=== PATIENT | male | born 1975 | race American Indian/Alaskan Native ===

== ENCOUNTER 2021-01-22 15:27 | Emergency (ER) | payer SELFPAY ==
[2021-01-22] MEDS ORDERED: NALOXONE 2 MG/2 ML INJ IV ONE (20:00)
--- NOTE | 2021-01-22 20:01 | Emergency Department Report ---
History of Present Illness - General Stated Complaint: AMS Time Seen by Provider: 01/22/21 19:56 Source: EMS - History of Present Illness Initial Comments: Patient is 45 years old male brought to the emergency room via EMS for ketty luation of possible drug overdose EMS stated they found patient unresponsive with pinpoint pupils. Patient received Narcan 2 mg and patient immediately start working up. Upon arrival to the ER patient still obtunded however he responded to questions appropriately. He still denying using drugs. Complaint: accidental overdose Intent: unwilling to say Context: Accidental Overdose: wanted to get high Treatments Prior to Arrival: narcan ED Review of Systems ROS: Stated complaint: AMS Other details as noted in HPI Comment: All other systems reviewed and negative Constitutional: denies: chills, fever Respiratory: denies: cough, shortness of breath, SOB with exertion Cardiovascular: denies: chest pain Gastrointestinal: denies: abdominal pain, nausea, vomiting Musculoskeletal: denies: back pain Neurological: denies: headache, weakness Psychiatric: denies: auditory hallucinations, homicidal thoughts, suicidal thoughts ED Physical Exam - General General appearance: in no apparent distress, obtunded - Head Head exam: Present: atraumatic, normocephalic, normal inspection - Eye Eye exam: Present: normal appearance, PERRL Pupils: Present: miosis - ENT ENT exam: Present: normal exam, normal orophraynx, mucous membranes moist - Neck Neck exam: Present: normal inspection, full ROM. Absent: tenderness, m eningismus - Respiratory Respiratory exam: Present: normal lung sounds bilaterally - Cardiovascular Cardiovascular Exam: Present: regular rate, normal rhythm, normal heart sounds - GI/Abdominal GI/Abdominal exam: Present: soft, normal bowel sounds. Absent: distended, tenderness, guarding, rebound, rigid, organomegaly, mass, bruit, pulsatile mass, hernia - Extremities Exam Extremities exam: Present: normal inspection, full ROM, normal capillary refill. Absent: tenderness, pedal edema, joint swelling, calf tenderness - Back Exam Back exam: Present: normal inspection, full ROM. Absent: CVA tenderness (R), CVA tenderness (L) - Neurological Exam Neurological exam: Present: alert, oriented X3, CN II-XII intact - Psychiatric Psychiatric exam: Present: normal mood - Skin Skin exam: Present: warm, intact, normal color ED Course Vital Signs 01/22/21 20:21 Temperature 98.9 F Pulse Rate 89 Respiratory 14 Rate Blood Pressure 134/83 ED Medical Decision Making - Lab Data Result diagrams: 01/22/21 20:02 01/22/21 20:02 - Medical Decision Making Patient is 45 years old male brought to the emergency room via EMS for evaluation of possible drug overdose EMS stated they found patient unresponsive with pinpoint pupils. Patient received Narcan 2 mg and patient immediately start working up. Upon arrival to the ER patient still obtunded however he responded to questions appropriately. Patient stated that he used heroin and X anax. Labs reviewed and is unremarkable. Patient has been observed in the ER for more than 8 hours. Patient remained alert, oriented x3 no acute distress. Patient denied any suicidal or homicidal ideation. No auditory or visual hallucination. Patient is medically and psychiatrically stable for discharge. Patient counseled about drug abuse. Critical care attestation.: If time is entered above; I have spent that time in minutes in the direct care of this critically ill patient, excluding procedure time. ED Disposition Clinical Impression: Accidental drug overdose, Polysubstance abuse Disposition: DC-01 TO HOME OR SELFCARE Is pt being admited?: No Condition: Stable Instructions: Accidental Drug Poisoning, Adult, Substance Use Disorder Referrals: PRIMARY CARE, [Primary Care Provider] - 3-5 Days
[2021-01-22] MEDS ORDERED: NALOXONE 2 MG/2 ML INJ ONE (20:03)
[2021-01-22 20:45] LABS: Hematocrit 42.6 % (35.5-45.6); Hemoglobin 13.8 gm/dl (11.8-15.2); Mean Corpuscular HGB Conc 32 % (32-34); Mean Corpuscular Volume 89 fl (84-94); Platelet Count 168 K/mm3 (140-440); Red Cell Distribution Width 15.6 % (13.2-15.2)
[2021-01-22 20:48] LABS: BUN/Creatinine Ratio 16; Blood Urea Nitrogen 23 mg/dL (9-20); Calcium 8.8 mg/dL (8.4-10.2); Hemolysis Index 6
[2021-01-22 22:43] LABS: Total Cells Counted 100
[2021-01-22 22:44] LABS: RBC Morphology Normal
[2021-01-23 00:17] VITALS: BP 159/98
== END 2021-01-23 00:18 | disposition home or self-care (01) ==
LOC: ED 15:27
DX: T50.901A Poisoning by unspecified drugs, medicaments and biological substances, accidental (unintentional), initial encounter (principal); F19.10 Other psychoactive substance abuse, uncomplicated; Y92.89 Other specified places as the place of occurrence of the external cause
CPT/HCPCS: 36415; 80048; 85007; 85025; 96374; 99284; J2310; 80320; G0480

== ENCOUNTER 2021-07-08 00:07 | Emergency (ER) | payer SELFPAY ==
[2021-07-08] MEDS ORDERED: ACETAMINOPHEN 325 MG TAB PO ONE (07:11)
--- NOTE | 2021-07-08 07:11 | Emergency Department Report ---
ED General Adult HPI - General Chief complaint: Dyspnea/Respdistress Stated complaint: BRYANNA PUI?: No Time Seen by Provider: 07/08/21 06:26 Source: patient, EMS Mode of arrival: Stretcher Limitations: No Limitations - History of Present Illness Initial comments: 45-year-old male with a past medical history of hypertension but noncompliant with his medications anxiety and depression presents to the ER today with complaints of shortness of breath and tension to his left chest, left upper arm and left neck. Patient stated that he has been having distention to his left chest, left upper arm left neck and also some discomfort to his left upper abdomen intermittently for years. He states that he came to the ER today to get checked out because he is tired of dealing with the pain. The pain seems to be worse with movement of his neck and his left upper extremity and also on palpation. He does admit that he does do strenuous activity at work. He states that he has been having shortness of breath intermittently for the past few days. He states that shortness of breath is mainly on exertion. He reports no wheezing, cough, fever, chills, lower extremity swelling or calf pain. He reports no nausea or vomiting. He denies any bowel changes or UTI symptoms. He states that he is never had a doctor, and never been checked out in several years. He does admit to tobacco use. He denies any other significant past medical history. He denies any history of PE or DVT risk factors for PE or DVT. He denies any family history of heart disease. MD Complaint: Shortness of breath, tension left-sided -: month(s) - Related Data Previous Rx's Medication Instructions Recorded Last Taken Type Amlodipine Besylate [Norvasc] 5 mg PO DAILY #30 tab 07/08/21 Unknown Rx Allergies Allergy/AdvReac Type Severity Reaction Status Date / Time No Known Allergies Allergy Unverified 07/08/21 00:48 ED Review of Systems ROS: Stated complaint: BRYANNA Other details as noted in HPI Comment: All other systems reviewed and negative Constitutional: denies: chills, fever Eyes: denies: eye pain, eye discharge, vision change ENT: denies: ear pain, throat pain Respiratory: shortness of breath. denies: cough, wheezing Cardiovascular: chest pain Gastrointestinal: denies: abdominal pain, nausea, diarrhea, constipation, hematemesis, melena Genitourinary: denies: urgency, dysuria, frequency, hematuria, discharge, testicular pain, testicular mass Musculoskeletal: denies: back pain, joint swelling, arthralgia Skin: denies: rash, lesions, change in color, change in hair/nails Neurological: denies: numbness, paresthesias, confusion, abnormal gait, vertigo Psychiatric: denies: anxiety, depression, auditory hallucinations, visual hallucinations, homicidal thoughts, suicidal thoughts Hematological/Lymphatic: denies: easy bleeding, easy bruising, swollen glands ED Past Medical Hx - Past Medical History Previous Medical History?: No - Surgical History Past Surgical History?: No - Social History Smoking Status: Never Smoker Substance Use Type: None - Medications Home Medications: Home Medications Medication Instructions Recorded Confirmed Last Taken Type Amlodipine Besylate [Norvasc] 5 mg PO DAILY #30 tab 07/08/21 Unknown Rx ED Physical Exam - General Limitations: No Limitations General appearance: alert, in no apparent distress - Head Head exam: Present: atraumatic, normocephalic, normal inspection - Eye Eye exam: Present: normal appearance, PERRL, EOMI Pupils: Present: normal accommodation - Neck Neck exam: Present: normal inspection, tenderness (Left trapezius muscle.), full ROM - Respiratory Respiratory exam: Present: normal lung sounds bilaterally, chest wall tenderness (Left anterior, lateral and posterior chest wall). Absent: respiratory distress, wheezes, rales, rhonchi - Cardiovascular Cardiovascular Exam: Present: regular rate, normal rhythm, normal heart sounds - GI/Abdominal GI/Abdominal exam: Present: soft. Absent: distended, tenderness, guarding, rebound - Extremities Exam Extremities exam: Present: normal inspection, full ROM, normal capillary refill. Absent: pedal edema, calf tenderness - Back Exam Back exam: Present: normal inspection, full ROM - Neurological Exam Neurological exam: Present: alert, oriented X3, CN II-XII intact, normal gait, reflexes normal. Absent: motor sensory deficit - Psychiatric Psychiatric exam: Present: normal affect, normal mood - Skin Skin exam: Present: intact ED Course Vital Signs 07/08/21 07/08/21 07/08/21 00:40 02:54 09:17 Temperature 98.2 F 98.5 F 98.1 F Pulse Rate 88 69 74 Respiratory 18 18 18 Rate Blood Pressure 126/78 Blood Pressure 157/104 183/110 [Right] O2 Sat by Pulse 98 99 97 Oximetry ED Medical Decision Making - Lab Data Result diagrams: 07/08/21 07:34 07/08/21 07:34 - EKG Data EKG shows normal: sinus rhythm Rate: normal (62) - EKG Data Interpretation: normal EKG - Radiology Data Radiology results: report reviewed Patient: LANDY ARCHER MR#: [id number] : 1975 Acct:[id number] Age/Sex: 45 / M ADM Date: 07/08/21 Loc: ED Attending Dr: Ordering Physician: RUSS GARCIA Date of Service: 07/08/21 Procedure(s): XR chest routine 2V Accession Number(s): [id number] cc: RUSS GARCIA Fluoro Time In Minutes: CHEST 2 VIEWS INDICATION / CLINICAL INFORMATION: Left-sided chest pain. COMPARISON: None available. FINDINGS: SUPPORT DEVICES: None. HEART / MEDIASTINUM: No significant abnormality. LUNGS / PLEURA: No significant pulmonary or pleural abnormality. No acute skeletal abnormality. ADDITIONAL FINDINGS: No significant additional findings. IMPRESSION: 1. No acute findings. Signer Name: Erika Mejia MD Signed: 07/08/2021 7:37 AM Workstation Name: [id number] Transcribed By: DT Dictated By: Jaime Mejia MD Electronically Authenticated By: Jaime Mejia MD Signed Date/Time: 07/08/2137 DD/ TD/TT: - Medical Decision Making 45-year-old male with a past medical history of hypertension but noncompliant with his medications anxiety and depression presents to the ER today with complaints of shortness of breath and tension to his left chest, left upper arm and left neck. Patient stated that he has been having distention to his left chest, left upper arm left neck and also some discomfort to his left upper abdomen intermittently for years. He states that he came to the ER today to get checked out because he is tired of dealing with the pain. The pain seems to be worse with movement of his neck and his left upper extremity and also on palpation. He does admit that he does do strenuous activity at work. He states that he has been having shortness of breath intermittently for the past few days. He states that shortness of breath is mainly on exertion. He reports no wheezing, cough, URI symptoms, fever, chills, lower extremity swelling or calf pain. He reports no nausea or vomiting. He denies any bowel changes or UTI symptoms. He states that he is never had a doctor, and never been checked out in several years. He does admit to tobacco use. He denies any other significant past medical history. He denies any history of PE or DVT risk factors for PE or DVT. He denies any family history of heart disease. Labs reviewed --CBC and CMP unremarkable. Troponin is negative. EKG was normal, normal sinus rhythm with a heart rate of 62. Chest x-ray showed nothing acute. Patient vital signs were stable. Patient currently resting on the recliner, comfortably he is not in any acute pain or respiratory distress. He is not toxic or ill-appearing. He is neurologically intact with a normal gait. He has a nonsurgical abdominal exam. He is hemodynamically stable. Patient has a heart score of 2. He has a PERC score of 0. I do not suspect patient pain to be related to unstable angina, PE, aortic dissection, acute abdominal abnormality, TIA/CVA, infectious process or any other acute emergent conditions warranting additional testing, or admission at this time. Suspect this pain is more musculoskeletal as it is reproducible. Discussed suspected diagnosis and treatment plan with patient. Recommend follow-up with primary care doctor. Patient expressed understanding of all instructions and agree with plan. Patient was stable at time of discharge. Critical care attestation.: If time is entered above; I have spent that time in minutes in the direct care of this critically ill patient, excluding procedure time. ED Disposition Clinical Impression: Nonspecific chest pain, Musculoskeletal pain, Uncontrolled hypertension, Noncompliance with medication regimen Disposition: 01 HOME / SELF CARE / HOMELESS Is pt being admited?: No Does the pt Need Aspirin: No Condition: Stable Instructions: Nonspecific Chest Pain, Adult, Musculoskeletal Pain, Pain Without a Known Cause, Managing Your Hypertension, Hypertension (ED) Additional Instructions: I recommend you start taking the Norvasc as prescribed to help with your blood pressure. You can take Tylenol and/or ibuprofen from [id number] to help with any pain. Most importantly I recommend that you follow-up with the primary care doctor listed on your discharge instructions for continued monitoring of your blood pressure, and continued care. Return to the ER if anything worsens. Prescriptions: Amlodipine Besylate [Norvasc] 5 mg PO DAILY #30 tab Referrals: LETI GONZALEZ MD [Staff Physician] - 3-5 Days Forms: Work/School Release Form(ED) Time of Disposition: 08:54 Heart Score - HEART Score History: Slightly suspicious EKG: Normal Age: 45-65 Risk factors: 1-2 risk factors Troponin: < normal limit HEART Score: 2 - EKG Read Time Time EKG Completed: 07:39 EKG Read Time: 07:42 - Critical Actions Critical Actions: 0-3 pts:0.9-1.7%risk of adverse cardiac event.Candidate for discharge
[2021-07-08] MEDS ORDERED: LORazepam 2 MG/ML VIAL ONE (07:28)
--- NOTE | 2021-07-08 07:41 | XRay Report ---
CHEST 2 VIEWS INDICATION / CLINICAL INFORMATION: Left-sided chest pain. COMPARISON: None available. FINDINGS: SUPPORT DEVICES: None. HEART / MEDIASTINUM: No significant abnormality. LUNGS / PLEURA: No significant pulmonary or pleural abnormality. No acute skeletal abnormality. ADDITIONAL FINDINGS: No significant additional findings. IMPRESSION: 1. No acute findings. Signer Name: Erika Mejia MD Signed: 07/08/2021 7:37 AM Workstation Name: [id number]
[2021-07-08 08:05] LABS: Basophils % (Auto) 0.4 % (0.0-1.8); Eosinophils # (Auto) 0.1 K/mm3 (0.0-0.4); Eosinophils % (Auto) 2.1 % (0.0-4.3); Lymphocytes # (Auto) 1.8 K/mm3 (1.2-5.4); Lymphocytes % (Auto) 31.9 % (13.4-35.0); Mean Corpuscular HGB Conc 31 % (32-34); Mean Corpuscular Volume 86 fl (84-94); Monocytes # (Auto) 0.6 K/mm3 (0.0-0.8); Monocytes % (Auto) 10.7 % (0.0-7.3); Platelet Count 186 K/mm3 (140-440); Red Blood Count 5.38 M/mm3 (3.65-5.03); Red Cell Distribution Width 14.8 % (13.2-15.2)
[2021-07-08 08:06] LABS: Hematocrit 46.4 % (35.5-45.6); Hemoglobin 14.5 gm/dl (11.8-15.2)
[2021-07-08 08:24] LABS: Alanine Aminotransferase 30 units/L (7-56); Albumin 4.5 g/dL (3.9-5); BUN/Creatinine Ratio 12; Blood Urea Nitrogen 13 mg/dL (9-20); Calcium 9.1 mg/dL (8.4-10.2); Hemolysis Index 6
[2021-07-08 09:18] VITALS: BP 183/110
--- NOTE | 2021-07-11 09:16 | Electrocardiograph Report ---
[facility] Test Date: 2021-07-08 Test Time: 07:39:22 Pat Name: LANDY ARCHER Department: Room: Gender: M Bag Checker: JEFF : 1975 Requested By: RUSS GARCIA Order Number: [id number] Reading MD: Jean Green Measurements Intervals [place] Rate: 62 P: 76 [place]: 176 QRS: 62 QRSD: 75 T: 64 QT: 436 QTc: 443 Interpretive Statements Sinus rhythm No previous ECG available for comparison Electronically Signed On 07-11-2021 9:16:30 EST by Jean Green
== END 2021-07-08 09:20 | disposition home or self-care (01) ==
LOC: ED 00:07
DX: R07.9 Chest pain, unspecified (principal); M79.18 Myalgia, other site; I10 Essential (primary) hypertension; Z91.14 Patient's other noncompliance with medication regimen
CPT/HCPCS: 36415; 71046; 80053; 83690; 84484; 85025; 93005; 99284; J2060